=== PATIENT | female | born 1980 | race Caucasian/White ===

== ENCOUNTER → 2017-06-07 10:42 | Outpatient (CLI) | payer BC, SELFPAY ==
[2017-06-09 13:23] LABS: HPV Reflexed? NOT INDICATED
== END ==
PROVIDERS: Visit Provider Obstetrics & Gynecology
DX: Z12.4 Encounter for screening for malignant neoplasm of cervix (principal)
CPT/HCPCS: 88175; G0145

== ENCOUNTER → 2017-12-13 10:46 | Outpatient (CLI) | payer BC, SELFPAY ==
[2017-12-13 14:39] LABS: Hematocrit 40.2 % (37-47); Hemoglobin 13.2 g/dl (12.0-15.0); Mean Corp Hgb Conc 32.8 g/gl (32-36); Mean Corpuscular Volume 97.6 fL (81-99); Mean Platelet Vol. 9.8 fl (6.2-12.0); Platelet Count 298 K/mm3 (150-450); RBC Distribution Width CV 12.5 % (11.6-14.6); RBC Distribution Width SD 44.5 fl (35.1-43.9); Red Blood Count 4.12 M/mm3 (4.2-5.4); White Blood Count 6.8 K/mm3 (4.4-11.0)
[2017-12-13 14:41] LABS: Scan Indicated on CBC? Y/N NO
[2017-12-13 15:02] LABS: Hemoglobin A1c 5.5 % (4.2-6.3)
[2017-12-13 15:15] LABS: Anion Gap 7 (5-15); BUN 10 mg/dL (7-18); BUN/Creat Ratio 10.7 RATIO (10-20); Calcium,Total 8.5 mg/dL (8.5-10.1); Chloride 107 mmol/L (98-107); Creatinine, Serum 0.94 mg/dL (0.55-1.02); EST Glomerular Filtration Rate 71 mL/min (>60); Est Glom Filt Rate - Afr Amer 85 mL/min (>60); Free T3 3.2 pg/mL (2.18-3.98); Glucose 92 mg/dL (74-106); Potassium 3.7 mmol/L (3.5-5.1); Sodium Level 140 mmol/L (136-145); T4 Free Direct 0.89 ng/dL (0.76-1.46); Thyroid Stim Hormone (TSH) 1.36 uIU/mL (0.358-3.74)
[2017-12-13 15:46] LABS: hCG Titer Quant., Serum < 1 mIU/mL (<9 non-preg)
[2017-12-16 09:18] LABS: HPV Reflexed? NOT INDICATED
== END ==
PROVIDERS: Visit Provider Obstetrics & Gynecology
DX: N94.3 Premenstrual tension syndrome (principal); N92.6 Irregular menstruation, unspecified; R87.612 Low grade squamous intraepithelial lesion on cytologic smear of cervix (LGSIL)
CPT/HCPCS: 36415; 80048; 83036; 84439; 84443; 84481; 84702; 85027; 87077; 87086; 87088; 87186; 88175; G0145

== ENCOUNTER → 2018-05-02 14:15 | Outpatient (CLI) | payer BC, SELFPAY ==
[2018-05-02 16:03] LABS: hCG Titer Quant., Serum < 1 mIU/mL (<9 non-preg)
--- OUTSIDE RECORDS SUMMARY | 2018-07-04 14:47 | XMS RPT_ITS ---
:1980 Author Organization OH[facility] Care Team Providers Name Role Phone Vianey Waterman Attending Unavailable Vianey Waterman Attending Unavailable Vianey Waterman Attending Unavailable Miroslava Reynoso Attending Unavailable Miroslava Reynoso Attending Unavailable PROBLEMS PROBLEMS DATE TYPE CONDITION / CODE ATTENDING STATUS SOURCE 05/02/2018 Unknown N91.2 - Vianey Waterman Active [place] Amenorrhea, Community unspecified / Hospital N91.2(ICD-10) Repository 03/14/2018 Admitting Unknown / [facility] Miroslava Mccauley [facility] Repository 12/13/2017 Unknown N94.3 - Vianey Waterman Active [place] Premenstrual Community tension syndrome / Hospital N94.3(ICD-10) Repository 12/13/2017 Unknown N92.6 - Irregular Vianey Waterman Active [place] menstruation, Community unspecified / Hospital N92.6(ICD-10) Repository PROCEDURES PROCEDURES No Procedure Records FoundRESULTS RESULTS HCG TITER QUANT., Collected: 05/02/2018 Status: F Source: [place] SERUM 2:17 PM [facility] REPOSITORY TYPE CODE TESTS RESULT OUT OF RANGE REFERENCE UNITS LAB L700.8000 <9 non-preg mIU/mL Normal HCG < 1 QUANT. Performed By: #### L700.8000 #### [facility] [address] [place], [address] Observed: 04/17/2018 Status: F Source: [facility] URINE CULTURE 10:15 AM [facility] REPOSITORY ORGANISM 1: KLEBSIELLA PNEUMONIAE COLONY COUNT >100,000 KLEBSIELLA PNEUMONIAE: REACTION AMIKACIN <16 S AMPICILLIN >16 R CEFAZOLIN <8 S CEFEPIME <4 S CEFOTAXIME <2 S CEFTAZIDIME <1 S CEFUROXIME <4 S CIPROFLOXACIN <1 S GENTAMICIN <4 S IMIPENEM <1 S ERTAPENEM <2 S NITROFURANTOIN <32 S PIPERACILLIN/TAZOBACTAM <16 S TOBRAMYCIN <4 S TRIMETH/SULFA <2/38 S LEVOFLOXACIN <2 S MEROPENEM <1 S Performed By: #### M100.90042 #### [facility] [address] [place] [address] Observed: 03/14/2018 Status: F Source: [facility] URINE CULTURE 9:47 AM [facility] REPOSITORY ORGANISM 1: KLEBSIELLA PNEUMONIAE COLONY COUNT >100,000 KLEBSIELLA PNEUMONIAE: REACTION AMIKACIN <16 S AMPICILLIN >16 R CEFAZOLIN <8 S CEFEPIME <4 S CEFOTAXIME <2 S CEFTAZIDIME <1 S CEFUROXIME <4 S CIPROFLOXACIN <1 S GENTAMICIN <4 S IMIPENEM <1 S ERTAPENEM <2 S NITROFURANTOIN >64 R PIPERACILLIN/TAZOBACTAM <16 S TOBRAMYCIN <4 S TRIMETH/SULFA <2/38 S LEVOFLOXACIN <2 S MEROPENEM <1 S Performed By: #### M100.24251 #### [facility] [address] [place] [address] CBC-COMPLETE BLOOD CNT Collected: 12/13/2017 Status: F Source: [place] NO DIFF 11:01 AM [facility] REPOSITORY TYPE CODE TESTS RESULT OUT OF RANGE REFERENCE UNITS LAB L100.1000 4.4-11.0 K/mm3 Normal WBC 6.8 LAB L100.1200 4.2-5.4 M/mm3 Low RBC 4.12 LAB L100.1300 12.0-15.0 g/dl Normal HGB 13.2 LAB L100.1400 37-47 % Normal HCT 40.2 LAB L100.1500 81-99 fL Normal MCV 97.6 LAB L100.1600 27.0-32.0 pg Normal MCH 32.0 LAB L100.1700 32-36 g/gl Normal MCHC 32.8 LAB L100.1810 11.6-14.6 % Normal RDW CV 12.5 LAB L100.1820 35.1-43.9 fl High RDW SD 44.5 LAB L100.1900 150-450 K/mm3 Normal PLT 298 LAB L100.2000 6.2-12.0 fl Normal MPV 9.8 Performed By: #### L100.0500 #### [facility] [address] [facility] [place], [place], [address] HEMOGLOBIN A1C Collected: 12/13/2017 Status: F Source: VISTA 11:01 AM [facility] REPOSITORY TYPE CODE TESTS RESULT OUT OF RANGE REFERENCE UNITS LAB L501.9985 4.2-6.3 % Normal HGB A1C 5.5 Performed By: #### L501.9985 #### [facility] [address] [place], [address] BASIC METABOLIC Collected: 12/13/2017 Status: F Source: [place] PROFILE (BMP) 11:01 AM [facility] REPOSITORY TYPE CODE TESTS RESULT OUT OF RANGE REFERENCE UNITS LAB L501.0100 74-106 mg/dL Normal GLU 92 Result Comment: Please note revised GLUCOSE reference range effective 2017. LAB L501.1000 7-18 mg/dL Normal BUN 10 LAB L501.1100 0.55-1.02 mg/dL Normal CREAT,SERUM 0.94 Result Comment: The validity of the calculated GFR AND GFRAA in patients over 70 years has not been determined. Clinical correlation is essential. LAB L501.1110 >60 mL/min Normal EST GFR 71 Result Comment: Non- GFR Calc LAB L501.1115 >60 mL/min Normal EST GFR - AA 85 Result Comment: GFR Calc LAB L501.1300 10-20 RATIO Normal BUN/CRE 10.7 LAB L501.2200 8.5-10.1 mg/dL CA Normal 8.5 LAB L501.5300 136-145 mmol/L NA Normal 140 LAB L501.5600 3.5-5.1 mmol/L K Normal 3.7 LAB L501.5900 98-107 mmol/L CL Normal 107 LAB L501.6100 21.0-32.0 mmol/L Normal CO2 26.0 LAB L501.6200 5-15 Normal GAP 7 Performed By: #### L500.2500, L501.26909, L501.9520, L506.0400 #### [facility] [address] [place], [place], [address] FREE T3 Collected: 12/13/2017 Status: F Source: [facility]IST[facility] 11:01 AM [facility] REPOSITORY TYPE CODE TESTS RESULT OUT OF RANGE REFERENCE UNITS LAB L501.03661 2.18-3.98 pg/mL Normal FREE T3 3.2 Performed By: #### L500.2500, L501.64121, L501.9520, L506.0400 #### [facility] [address] [place], [place], [address] THYROID STIM HORMONE Collected: 12/13/2017 Status: F Source: [facility] (TSH) 11:01 AM [facility] REPOSITORY TYPE CODE TESTS RESULT OUT OF RANGE REFERENCE UNITS LAB L501.9520 0.358-3.74 uIU/mL Normal TSH 1.36 Performed By: #### L500.2500, L501.38901, L501.9520, L506.0400 #### [facility] [address] [place], [address] T4 FREE DIRECT Collected: 12/13/2017 Status: F Source: [facility]ISTA 11:01 AM [facility] REPOSITORY TYPE CODE TESTS RESULT OUT OF RANGE REFERENCE UNITS LAB L506.0400 0.76-1.46 ng/dL Normal T4 FREE 0.89 DIRECT Performed By: #### L500.2500, L501.04275, L501.9520, L506.0400 #### [facility] [address] [place], [address] HCG TITER QUANT., Collected: 12/13/2017 Status: F Source: [place] SERUM 11:01 AM [facility] REPOSITORY TYPE CODE TESTS RESULT OUT OF RANGE REFERENCE UNITS LAB L700.8000 <9 non-preg mIU/mL Normal HCG < 1 QUANT. Performed By: #### L700.8000 #### [facility] [address] [facility] [place], [address] Observed: 12/13/2017 Status: F Source: [facility] CULTURE, URINE 10:47 AM [facility] REPOSITORY Urine Culture ORGANISM 1: Klebsiella pneumoniae sp pneum Bennett Count 50,000-80,000 Klebsiella pneumoniae sp pneum: REACTION Amoxacillin/Clavulanic Acid $ <=2 S Ampicillin $ >=32 R Ampicillin/Sulbactam $ 8 S Cefazolin $ <=4 S Cefepime $ <=1 S Ceftriaxone $ <=1 S Ciprofloxacin $ <=0.25 S ESBL - Ertapenim $$$ <=0.5 S Gentamicin $ <=1 S Imipenem *NF <=0.25 S Levofloxacin $ <=0.12 S Nitrofurantoin $ 64 I Piperacillin/Tazobactam $$ 8 S Tobramycin $ <=1 S Trimethoprim/Sulfametho $ <=20 S (NF) indicates non-formulary drug at [facility]. Approval by Infectious Disease Specialist required before non-formulary drugs may be ordered and/or dispensed. Performed By: #### M100.0650 #### [facility] [facility] [place], [address] PAP I-G W/RFX HRHPV Collected: 12/13/2017 Status: F Source: LAMIN 10:00 AM [facility] REPOSITORY Order Comment: CYTOLOGY INFORMATION: - CLINICAL INFORMATION: - DATE LMP/MENOPAUSE: 11/08/17 LMP - COLLECTION VIAL: Thin Prep Vial - PHY THERAPIST SOURCE: CERVICAL/ENDOCERVICAL - COLLECTION TECHNIQUE: BRUSH/SPATULA Specimen Comment: [id number] Specimen Comment: No. of containers..01 ThinPrep Vial TYPE CODE TESTS RESULT OUT OF RANGE REFERENCE UNITS LAB L7400.0800 . Normal DIAGN Comment Result Comment: NEGATIVE FOR INTRAEPITHELIAL LESION AND MALIGNANCY. LAB L7400.0900 . Normal ADEQ Comment Result Comment: Satisfactory for evaluation. Endocervical and/or squamous metaplastic cells (endocervical component) are present. LAB L7400.1400 . Normal PERFORM Comment Result Comment: Christina Azevedo, Segmental Paver Installer (ASCP) LAB L7400.2575 . Normal TEST METHOD Comment Result Comment: This liquid based ThinPrep(R) pap test was screened with the use of an image guided system. LAB L7400.2600 . Normal . COMM LAB L7400.2700 . Normal PAPSMR Comment Result Comment: The Pap smear is a screening test designed to aid in the detection of premalignant and malignant conditions of the uterine cervix. It is not a diagnostic procedure and should not be used as the sole means of detecting cervical cancer. Both false-positive and false-negative reports do occur. LAB L7400.2800 . Normal HPV RFLX Comment Result Comment: The HPV DNA reflex criteria were not met with this specimen result therefore, no HPV testing was performed. Performed at: - [facility] [id number] Verifying Specialist: Dyan Ramos MD, Phone: [phone] Performed By: #### L7400.0350 #### [facility]refer to report for specific site) refer to report for address and phone number PAP I-G W/RFX HRHPV Collected: 06/07/2017 Status: F Source: LAMIN 9:30 AM [facility] REPOSITORY Order Comment: CYTOLOGY INFORMATION: - CLINICAL INFORMATION: - DATE LMP/MENOPAUSE: 04/02/17 LMP - COLLECTION VIAL: Thin Prep Vial - PHY THERAPIST SOURCE: CERVICAL/ENDOCERVICAL - COLLECTION TECHNIQUE: BRUSH/SPATULA Specimen Comment: [id number] Specimen Comment: No. of containers..01 ThinPrep Vial TYPE CODE TESTS RESULT OUT OF RANGE REFERENCE UNITS LAB L7400.0800 . Normal DIAGN Comment Result Comment: NEGATIVE FOR INTRAEPITHELIAL LESION AND MALIGNANCY. LAB L7400.0900 . Normal ADEQ Comment Result Comment: Satisfactory for evaluation. Endocervical and/or squamous metaplastic cells (endocervical component) are present. LAB L7400.1400 . Normal PERFORM Comment Result Comment: Juanis Kearns, Segmental Paver Installer (ASCP) LAB L7400.2575 . Normal TEST METHOD Comment Result Comment: This liquid based ThinPrep(R) pap test was screened with the use of an image guided system. LAB L7400.2600 . Normal . COMM LAB L7400.2700 . Normal PAPSMR Comment Result Comment: The Pap smear is a screening test designed to aid in the detection of premalignant and malignant conditions of the uterine cervix. It is not a diagnostic procedure and should not be used as the sole means of detecting cervical cancer. Both false-positive and false-negative reports do occur. LAB L7400.2800 . Normal HPV RFLX Comment Result Comment: The HPV DNA reflex criteria were not met with this specimen result therefore, no HPV testing was performed. Performed at: [facility] [id number] Verifying Specialist: Dyan Ramos MD, Phone: [phone] Performed By: #### L7400.0350 #### [facility] (refer to report for specific site) refer to report for address and phone number ALLERGIES ALLERGIES No Allergies Records FoundENCOUNTERS ENCOUNTERS ADMIT/DISCHARGE ACCOUNT ADMITTING ENCOUNTER LOCATION SOURCE NUMBER CLASS 05/02/[id number] ing:WOBLAB Repository 04/17/[id number] g:H.ELS Repository 03/14/[id number] g:H.ELS Repository 12/13/[id number] ing:WOBLAB Repository 06/07/[id number] ing:LABSPEC Repository PAYERS PAYERS ENCOUNTER GUARANTOR PAYER SUBSCRIBER SOURCE 05/02/2018 Sukhjinder Lopez Primary Sukhjinder Florez Insurance:ANTHEMPolic FryeDOB[facility], [facility]: [id number] [address]Krg: [id number] Repository Date:6822-46-09HZ [address] () [address]QK[place]RXA, [place] [address]RV: 05/02/2018 Secondary NOT GIVENUNK [place] Insurance:SELF PAY [facility] Number: Effective Repository Date:2018-05-02 04/17/2018 SUKHJINDER Land Primary SUKHJINDER Land [facility] [facility] Insurance:[facility] Number: Repository [place] [id number]: (330) Date:2697-64-53[phone] (HP) [address], [place] [address]TG: 03/14/2018 SUKHJINDER Land Primary SUKHJINDER Land [facility] Insurance:[facility] Number: Repository [facility] [id number]: (330) Date:0198-73-88TC [phone] (HP) [id number] HUNTER [address]UO: 12/13/2017 Sukhjinder Lopez Primary Sukhjinder [address] [facility] [address] [facility] [address] Insurance:ANTHEMPolic [facility] Number: [id number] [address]Rkr: [id number] Repository Date:3214-46-04IG [address] () [address]Q, [place] [address]IR: 12/13/2017 Secondary NOT GIVENUNK [place] Insurance:SELF PAY [facility] Number: Effective Repository Date:2017-12-13 06/07/2017 Sukhjinder [id number] Primary Suk[address]jinder [address] [facility] [address] Insurance:ANTHEMPolic FryeDOB[facility] y Number: [id number] [facility] [address]Epb: [id number] Repository Date:1716-68-01CX [address] () [address]UK[place]HBC, [place] [address]SK: 06/07/2017 Secondary NOT GIVENUNK [place] Insurance:SELF PAY [facility] Number: Effective Repository Date:2017-06-07
== END ==
PROVIDERS: Visit Provider Obstetrics & Gynecology
DX: N91.2 Amenorrhea, unspecified (principal)
CPT/HCPCS: 36415; 84702

== ENCOUNTER → 2018-09-05 | Outpatient (CLI) | payer BC, SELFPAY ==
[2018-09-11 09:40] LABS: HPV HC, High Risk Positive (Negative); HPV Reflexed? YES, CHARGE PATIENT
== END | disposition home or self-care (01) ==
LOC: LABSPEC 11:04
PROVIDERS: Visit Provider Obstetrics & Gynecology
DX: Z12.4 Encounter for screening for malignant neoplasm of cervix (principal)
CPT/HCPCS: 87624; 88175; G0145

== ENCOUNTER → 2018-09-25 10:03 | Outpatient (CLI) | payer BC, SELFPAY | PROVIDERS: Visit Provider Obstetrics & Gynecology | DX: N39.0 Urinary tract infection, site not specified (principal) | CPT/HCPCS: 87086; 87088; 87186 ==

== ENCOUNTER → 2019-03-13 15:21 | Outpatient (CLI) | payer BC, SELFPAY ==
[2019-03-19 20:32] LABS: HPV HC, High Risk Positive (Negative)
== END ==
PROVIDERS: Visit Provider Advanced Practice Midwife
DX: R87.612 Low grade squamous intraepithelial lesion on cytologic smear of cervix (LGSIL) (principal)
CPT/HCPCS: 87624; 88175; G0145

== ENCOUNTER → 2019-04-19 16:05 | Outpatient (CLI) | payer BC, SELFPAY ==
--- NOTE | 2019-04-19 | IMM_PTH ---
PATIENT: SUKHJINDER YOUNG LOC: [facility] U#:[id number] AGE/SX: 44/F ROOM: RE04/19/[address]: Dr. Mic Charles MD : 1980 BED: DIS: SPEC #: [id number] RECD: 04/23/19 12:54 STATUS: KORTNEY VANESSA #: [id number] MARY: 04/19/19 00:[address]: Mic Charles DEPT: IMMUNOHISTOCHEMISTRY RECD BY: Nanci Kerr Tissues: A - Uterine cervix, NOS Procedures: p16 (initial) KI-67 (add) PHYSICIAN & INSTITUTION [place] [address] SPECIMEN INFORMATION: Tissue Source: A - Cervical, four quad biopsy Clinical Info: ASCUS, positive HPV Specimen Number: [id number] CPT code: 80519, 28310 METHODOLOGY: Deparaffinized sections of prefer/formalin-fixed tissue or PAP/DQ stained slides are incubated with monoclonal/polyclonal antibodies/oligonucleotide probes. Localization is made via biotin free immunoperoxidase method. Appropriate controls are performed and reacted as expected. Results on target cell population are indicated in the following table: RESULTS: ANTIBODY / CLONE RESULT Block A P16 (E6H4) positive, focal and patchy Ki-67 (30-9) positive, low These tests were developed and their performance characteristics determined by [facility]. They may not have been cleared or approved by the U.S. Food and Drug Administration. The FDA has determined that such clearance or approval is not necessary. The above immunohistochemical/dualISH markers are ordered and reviewed by the Pathologist. INTERPRETATION: A. Cervical, four quad biopsy: Focal mild squamous dysplasia. SJ:marty 04/24/19
--- NOTE | 2019-04-19 14:30 | CER_PTH ---
PATIENT: SUKHJINDER YOUNG LOC: [facility] U#:[id number] AGE/SX: 44/F ROOM: RE04/19/[address]: Dr. Mic Charles MD : 1980 BED: DIS: SPEC #: [id number] RECD: 04/19/19 15:54 STATUS: KORTNEY COREASChloe #: [id number] MARY: 04/19/19 14:[address]: Mic Charles DEPT: SURGICAL PATHOLOGY RECD BY: Noam Carpio Tissues: A - Uterine cervix, NOS B - Endocervical Procedures: Surgery Specimen Level IV HEADER OPERATION: Colposcopy PRE-OP DIAGNOSIS: ASCUS, positive HPV TISSUE SUBMITTED: A - Cervical biopsy four quad, B - ECC MICROSCOPIC DIAGNOSIS A. 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 Acute inflammation. See comment. B. ECC: Disarticulated benign squamous epithelial cells, benign endocervical epithelium, benign endocervical mucosa with acute and chronic inflammation, blood and mucous. Negative for dysplasia. CARLOS:marty 04/23/19 COMMENT Immunohistochemistry ([id number]) for surrogate HPV marker (p16) supports the above diagnosis. Please make reference to previous specimen ([id number]) cervix, biopsy with diagnosis of mild squamous dysplasia. Case has been reviewed in consultation with Dr. Barnes who concurs with the above diagnosis. IDC:AM MICROSCOPIC DESCRIPTION Slides are reviewed. GROSS DESCRIPTION A - Received in fixative is one container labeled with the patient's name and designated cervical biopsy four quadrant. The specimen consists of multiple irregular fragments of light quinn soft tissue that in aggregate measure 2 x 0.5 x 0.1 cm. The specimen is totally submitted in one cassette. B - Received in fixative is one container labeled with the patient's name and designated ECC. The specimen consists of multiple fragments of hemorrhagic mucoid tissue that in aggregate measure 1 x 1 x 0.3 cm. The specimen is totally submitted in one cassette. / CARLOS:marty 04/22/19 TC:3 CPT: 61548 x2
== END ==
PROVIDERS: Referring Provider Obstetrics & Gynecology; Visit Provider Obstetrics & Gynecology
DX: R87.610 Atypical squamous cells of undetermined significance on cytologic smear of cervix (ASC-US) (principal); R87.810 Cervical high risk human papillomavirus (HPV) DNA test positive
CPT/HCPCS: 88305; 88341; 88342